=== PATIENT | male | born 1970 | race Caucasian/White ===

== ENCOUNTER 2021-02-26 20:40 | Emergency (ER) | payer OTHER ==
[~2021-02-26] VITALS: Ht 170.2 cm; Wt 63.6 kg
[2021-02-27 00:20] VITALS: BP 156/106
== END 2021-02-27 00:33 | disposition home or self-care (01) ==
LOC: EMS 20:42
DX: S13.4XXA Sprain of ligaments of cervical spine, initial encounter (principal); R51.9 Headache, unspecified; V43.52XA Car driver injured in collision with other type car in traffic accident, initial encounter; Y93.89 Activity, other specified; Y92.89 Other specified places as the place of occurrence of the external cause; Y99.8 Other external cause status
CPT/HCPCS: 70450; 72125; 99285

== ENCOUNTER 2022-01-30 22:53 | Emergency (ER) | payer OTHER ==
[~2022-01-30] VITALS: Ht 170.2 cm; Wt 59.1 kg
[2022-01-31] VITALS: BP 132/71
[2022-01-31] MEDS ORDERED: SELE120S2 TP (00:20)
[2022-01-31] MEDS ORDERED: CLOT15CR29 TP (00:21)
== END 2022-01-31 00:55 | disposition home or self-care (01) ==
LOC: EMS 22:53
DX: B35.4 Tinea corporis (principal)
CPT/HCPCS: 99282; Z7502